=== PATIENT | female | born 1985 | race Caucasian/White ===

== ENCOUNTER 2017-09-17 13:33 | Emergency (ER) | payer BC, OTHER ==
[2017-09-17 13:59] VITALS: RESP 16; TEMP 97.8; O2SAT 99
[2017-09-17 14:07] VITALS: BP 112/82; PULSE 79
== END 2017-09-17 14:15 | disposition home or self-care (01) ==
LOC: ED 13:33
DX: H60.503 Unspecified acute noninfective otitis externa, bilateral (principal)
CPT/HCPCS: 99282